=== PATIENT | male | born 1990 | race Caucasian/White ===

== ENCOUNTER 2023-05-03 22:19 | Emergency (ER) | payer BC ==
[~2023-05-03] VITALS: Ht 177.8 cm; Wt 122.5 kg
[2023-05-03 22:34] VITALS: BP_SYST 176; PULSE 91; RESP 20; TEMP 101.8; O2SAT 98
[2023-05-03 23:53] LABS: BILIRUBIN,URINE NEGATIVE (NEGATIVE); CLARITY/URINE CLEAR (CLEAR); COLOR,URINE YELLOW (YELLOW); GLUCOSE,URINE NEGATIVE (NEGATIVE); KETONES,URINE NEGATIVE (NEGATIVE); LEUKOCYTE ESTERASE ,URINE NEGATIVE (NEGATIVE); NITRITE, URINE NEGATIVE (NEGATIVE); PROTEIN URINE NEGATIVE (NEGATIVE)
[2023-05-03 23:57] LABS: BASOPHILS % (AUTO) 0.4 % (0.0-2.0); EOSINOPHILS # (AUTO) 0.1 K/uL (0.0-0.4); EOSINOPHILS % (AUTO) 0.9 % (0.0-4.0); HEMATOCRIT 42.2 % (36-54); LYMPHOCYTES # (AUTO) 1.8 K/uL (1.0-5.5); LYMPHOCYTES % (AUTO) 21.4 % (20.5-51.5); MEAN CORPUSCULAR HEMOGLOBIN 31 pg (27-31); MEAN CORPUSCULAR HGB CONC 36 % (32-36); MEAN CORPUSCULAR VOLUME 88 fL (79.0-98.0); MONOCYTES # (AUTO) 0.6 K/uL (0.0-1.0); MONOCYTES % (AUTO) 7.7 % (1.7-9.3); NEUTROPHILS # (AUTO) 5.9 K/uL (1.8-7.7); NEUTROPHILS % (AUTO) 69.6 % (40.0-70.0); PLATELET COUNT (AUTO) 337 K/uL (130-430); RED BLOOD CELL COUNT(AUTO) 4.81 MIL/uL (4.2-6.2); RED CELL DISTRIBUTION WIDTH 12.7 % (9.0-15.0); WHITE BLOOD COUNT (AUTO) 8.4 K/uL (4.8-10.8)
[2023-05-04 00:08] LABS: BLOOD, URINE TRACE (NEGATIVE)
[2023-05-04 00:12] LABS: CALCIUM 9.2 mg/dL (8.4-11.0); CREATININE 1.49 mg/dL (0.55-1.30); POTASSIUM 3.6 mmol/L (3.5-5.1)
[2023-05-04 00:18] LABS: ALBUMIN 4.2 g/dL (3.4-4.8); BILIRUBIN,DIRECT 0.2 mg/dL (0.0-0.3); TOTAL BILIRUBIN 0.6 mg/dL (0.0-1.0); TOTAL PROTEIN, SERUM 8.3 g/dL (6.4-8.3)
[2023-05-04] MEDS ORDERED: IBUP-1971 PO (00:47)
[2023-05-04 00:55] LABS: BACTERIA,URINE None Seen /HPF (None Seen)
[2023-05-04 01:18] VITALS: BP_SYST 142; PULSE 75; RESP 16; TEMP 97.5; O2SAT 100
== END 2023-05-04 01:04 | disposition home or self-care (01) ==
LOC: SED 22:19
DX: R10.31 Right lower quadrant pain (principal); R10.32 Left lower quadrant pain; M79.18 Myalgia, other site; M54.50 Low back pain, unspecified; Z79.899 Other long term (current) drug therapy
CPT/HCPCS: 36415; 76376; 80048; 80076; 81000; 81001; 81015; 83690; 85025; 99284

== ENCOUNTER 2023-12-19 10:10 | Emergency (ER) | payer BC ==
[~2023-12-19] VITALS: Ht 177.8 cm; Wt 117.9 kg
[~2023-12-19 10:10] MED LIST: IBUP-1971 PO
[2023-12-19 10:18] VITALS: BP_SYST 142; PULSE 89; RESP 16; TEMP 97.7; O2SAT 96
[2023-12-19] MEDS: LIDOCAINE 1% 10 MG/ML, 20 ML MDV INJ ONE (10:52)
[2023-12-19] MEDS: DIPHTH,PERTUSS(ACELL),TET VAC 0.5 ML VIAL (Tdap) I.M. ONE (11:12)
[2023-12-19] MEDS: BACITRACIN 1 GM OINT TP ONE (11:16)
[2023-12-19] MEDS ORDERED: CLIN-142 PO (11:26)
[2023-12-19] MEDS ORDERED: IBUP800T54 PO (11:26)
[2023-12-19 11:41] VITALS: BP_SYST 142; PULSE 89; RESP 16; TEMP 97.7; O2SAT 96
== END 2023-12-19 11:40 | disposition home or self-care (01) ==
LOC: SED 10:10
DX: L05.01 Pilonidal cyst with abscess (principal); Z79.899 Other long term (current) drug therapy
CPT/HCPCS: 10080; 90715; 99283